=== PATIENT | male | born 1990 | race Caucasian/White ===

== ENCOUNTER → 2018-03-04 13:18 | Outpatient (CLI) | payer MEDICARE ==
[~2018-03-04 13:18] MED LIST: HYDROCODON-ACE1 EAC7 PO; PERCOCET 10/3251 TA1 PO
[2018-03-10 12:37] VITALS: BMI 22.2
== END | disposition home or self-care (01) ==
LOC: D.MRI 13:18
DX: M25.552 Pain in left hip (principal)

== ENCOUNTER 2018-03-10 12:05 | Day surgery (SDC) | payer MEDICARE ==
[~2018-03-10] VITALS: Ht 172.7 cm; Wt 66.2 kg
--- NOTE | ~2018-03-10 | OP ---
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 PROCEDURE: Left hip core decompression under fluoroscopic guidance. SURGEON: Kristian Davis MD ANESTHESIA: General. INTRAOPERATIVE COMPLICATIONS: None. SUMMARY OF PATHOLOGIC FINDINGS: The patient's MRI showed the above stage avascular necrotic scoring. Therefore, we proceeded with decompression after discussing risks, hazards, and benefits associated with this. OPERATIVE SUMMARY IN DETAIL: After obtaining the appropriate preoperative orthopedic surgery consent as well as anesthetic consultation, evaluation, and clearance, the patient was brought to the operating room and was anesthetized on his [facility]. He was then moved to the [facility] fracture table. All pressure points were well padded. He was held firmly to the operating table using the strap. Right leg was placed in the well leg meehan. Well leg was placed in the traction boot. No traction was placed. Fluoroscopy was brought in and the hip was viewed on AP and lateral planes. Hip was then prepped and draped in routine sterile fashion. A small incision was made on the lateral aspect of the hip. Guidewire was then placed for the cannulated reaming system. The guidewire was then placed in center to center position on AP and lateral planes. Then, reaming was taken down to within approximately 3 mm from the articular surface. Next, long suction tip was placed into the core and allowed to pull negative pressure. Having completed this, wound was irrigated and closed with 4-0 Prolene. Sterile dressings were applied. The patient was awakened and taken to recovery room in stable condition. All final sponge and needle counts were correct. TRANSINT:[id number] Voice Confirmation ID: [id number] DOCUMENT ID: [id number] KRISTIAN DAVIS MD at 1425 CC: [id number] DICTATION DATE: 03/10/18 1440 INTERIOR PANELER: 03/10/18 1705 [facility] 03/10/[address] [address]
[~2018-03-10 12:05] MED LIST changes: -PERCOCET 10/3251 TA1 PO
[2018-03-10 12:37] VITALS: BP 109/61; Ht 172.7 cm; Wt 66.2 kg
[2018-03-10] MEDS ORDERED: PERCOCET 10/3251 TA1 PO (14:41)
== END 2018-03-10 16:30 | disposition home or self-care (01) ==
LOC: D.OPS 12:05 → D.PAN 14:15 → D.OPS 14:15
DX: M87.852 Other osteonecrosis, left femur (principal); Z01.812 Encounter for preprocedural laboratory examination

== ENCOUNTER → 2018-06-05 12:48 | Outpatient (CLI) | payer MEDICARE ==
[2018-03-10 12:37] VITALS: BMI 22.2
[~2018-06-05 12:48] MED LIST changes: +PERCOCET 10/3251 TA1 PO
== END | disposition home or self-care (01) ==
LOC: D.LABREF 12:48
DX: M54.16 Radiculopathy, lumbar region (principal)

== ENCOUNTER → 2018-06-05 17:46 | Outpatient (CLI) | payer MEDICARE ==
[2018-03-10 12:37] VITALS: BMI 22.2
== END | disposition home or self-care (01) ==
LOC: D.MRI 17:46
DX: M54.16 Radiculopathy, lumbar region (principal)

== ENCOUNTER → 2019-05-26 12:21 | Outpatient (CLI) | payer MEDICARE ==
[2018-03-10 12:37] VITALS: BMI 22.2
== END | disposition home or self-care (01) ==
LOC: D.MRI 05-20 16:00
PROVIDERS: ATTEND Orthopaedic Surgery
DX: M87.352 Other secondary osteonecrosis, left femur (principal)

== ENCOUNTER 2019-09-25 13:35 | Emergency (ER) | payer MEDICARE ==
[~2019-09-25] VITALS: Ht 172.7 cm; Wt 63.6 kg
[2019-09-25 13:42] VITALS: BP 138/73; Ht 172.7 cm; Wt 63.6 kg
[2019-09-25] MEDS ORDERED: DICLOFENAC SODI50 MG PO (16:16)
[2019-09-25] MEDS ORDERED: CYCLOBENZAPRINE5 MG PO (16:16)
== END 2019-09-25 16:24 | disposition home or self-care (01) ==
LOC: D.ER 13:35
DX: R07.82 Intercostal pain (principal); T14.8XXA Other injury of unspecified body region, initial encounter; X50.0XXA Overexertion from strenuous movement or load, initial encounter; Y93.9 Activity, unspecified; Y92.9 Unspecified place or not applicable

== ENCOUNTER 2019-10-24 12:50 | Emergency (ER) | payer MEDICARE ==
[~2019-10-24] VITALS: Ht 172.7 cm; Wt 63.6 kg
[~2019-10-24 12:50] MED LIST changes: +CYCLOBENZAPRINE5 MG PO; +DICLOFENAC SODI50 MG PO
[2019-10-24 13:01] VITALS: Ht 172.7 cm; Wt 63.6 kg
[2019-10-24] MEDS ORDERED: DICLOFENAC SODI50 MG PO (14:50)
[2019-10-24 15:15] VITALS: BP 130/72
== END 2019-10-24 15:17 | disposition home or self-care (01) ==
LOC: D.ER 12:50
DX: M25.552 Pain in left hip (principal)

== ENCOUNTER 2019-11-16 10:39 | Emergency (ER) | payer MEDICARE ==
[~2019-11-16] VITALS: Ht 172.7 cm; Wt 63.6 kg
[2019-11-16 10:45] VITALS: Ht 172.7 cm; Wt 63.6 kg
[2019-11-16 11:46] VITALS: BP 134/82
== END 2019-11-16 11:47 | disposition home or self-care (01) ==
LOC: D.ER 10:39
DX: S61.011A Laceration without foreign body of right thumb without damage to nail, initial encounter (principal); W26.8XXA Contact with other sharp object(s), not elsewhere classified, initial encounter; F17.210 Nicotine dependence, cigarettes, uncomplicated